=== PATIENT | female | born 1995 | race Caucasian/White ===

== ENCOUNTER 2016-11-18 21:52 | Emergency (ER) | payer OTHER ==
[~2016-11-18] VITALS: Ht 152.4 cm; Wt 79.4 kg
[~2016-11-18 21:52] MED LIST: MOTR200T44 PO; TYLE167L PO; TYLE325T5 PO; VITAPRTA PO
[2016-11-18 21:53] VITALS: BP 117/74
[2016-11-18] MEDS ORDERED: CYCLOBENZAPRINE 10 MG TAB PO ONE (23:00)
[2016-11-18] MEDS ORDERED: FLON1SPR (23:17)
[2016-11-18] MEDS ORDERED: CLOT10TR MT (23:17)
[2016-11-18] MEDS ORDERED: CYCL10TA PO (23:17)
[2017-01-05] MEDS ORDERED: KEFL500C17 PO (19:56)
== END 2016-11-18 23:38 | disposition home or self-care (01) ==
LOC: M ED 21:52
DX: M54.6 Pain in thoracic spine (principal); B37.0 Candidal stomatitis; J00 Acute nasopharyngitis [common cold]; F17.210 Nicotine dependence, cigarettes, uncomplicated

== ENCOUNTER 2017-08-08 05:54 | Emergency (ER) | payer OTHER ==
[2017-08-08 06:28] LABS: HEMATOCRIT 45.3 % (36.0-47.0); HEMOGLOBIN 15.7 g/dl (12.0-15.5); MEAN CORPUSCULAR HEMOGLOBIN 31.4 pg (27.0-33.0); MEAN CORPUSCULAR HGB CONC 34.7 g/dl (32.0-36.5); MEAN CORPUSCULAR VOLUME 90.6 fl (80.0-96.0); PLATELET COUNT, AUTOMATED 317 10^3/uL (150-450); RED CELL DISTRIBUTION WIDTH 12.4 % (11.5-14.5); WHITE BLOOD COUNT 14.9 10^3/uL (4.0-10.0)
[2017-08-08 06:48] LABS: AMPHETAMINES LEVEL URINE NEGATIVE (NEGATIVE); BARBITURATES URINE NEGATIVE (NEGATIVE); BENZODIAZEPINES URINE NEGATIVE (NEGATIVE); CANNABINOIDS URINE NEGATIVE (NEGATIVE); COCAINE METABOLITE URINE NEGATIVE (NEGATIVE); METHADONE URINE NEGATIVE (NEGATIVE); OPIATES URINE NEGATIVE (NEGATIVE); PHENCYCLIDINE URINE NEGATIVE (NEGATIVE)
[2017-08-08 06:59] LABS: ALBUMIN 4.1 GM/DL (3.2-5.2); ALBUMIN/GLOBULIN RATIO 1.14 (1.00-1.93); ALKALINE PHOSPHATASE 92 U/L (45-117); ALT/SGPT 15 U/L (12-78); ANION GAP 9 MEQ/L (8-16); AST/SGOT 13 U/L (7-37); BILIRUBIN,DIRECT < 0.1 MG/DL (0.0-0.2); BILIRUBIN,TOTAL 0.3 MG/DL (0.2-1.0); BLOOD UREA NITROGEN 16 MG/DL (7-18); CALCIUM LEVEL 8.8 MG/DL (8.5-10.1); CARBON DIOXIDE LEVEL 22 MEQ/L (21-32); CHLORIDE LEVEL 108 MEQ/L (98-107); CREATININE FOR GFR 0.77 MG/DL (0.55-1.30); ETHYL ALCOHOL (ETHANOL) 0.133 % (0.000-0.010); GLUCOSE, FASTING 88 MG/DL (70-100); POTASSIUM SERUM 3.8 MEQ/L (3.5-5.1); SALICYLATE LEVEL 2.8 MG/DL (5.0-30.0); SODIUM LEVEL 139 MEQ/L (136-145); TOTAL PROTEIN 7.7 GM/DL (6.4-8.2)
[2017-08-08 07:01] LABS: ACETAMINOPHEN LEVEL < 2.0 UG/ML (10.0-30.0)
[2017-08-08] MEDS ORDERED: LIDOCAINE 1% MDV 20ML VIAL As Ordered ×2 (07:33)
[2017-08-08] MEDS: LIDOCAINE 1% MDV 20ML VIAL SC ×2 (07:45)
[2017-08-08 08:08] LABS: CONTROL LINE HCG INT CTR LINE PRESENT; HCG, SERUM QUALITATIVE NEGATIVE (NEGATIVE)
[2017-08-08] MEDS: ADACEL/BOOSTRIX VACCINE (DIPHTH/PERTUSS/ACELL/TETANUS)0.5ML SYR (90715) IM ×2 (08:10)
== END 2017-08-08 12:26 | disposition home or self-care (01) ==
LOC: M ED 05:54
DX: F10.229 Alcohol dependence with intoxication, unspecified (principal); Y90.0 Blood alcohol level of less than 20 mg/100 ml; S61.215A Laceration without foreign body of left ring finger without damage to nail, initial encounter; S50.819A Abrasion of unspecified forearm, initial encounter; W26.8XXA Contact with other sharp object(s), not elsewhere classified, initial encounter; Y92.89 Other specified places as the place of occurrence of the external cause; F41.9 Anxiety disorder, unspecified; Z91.5 Personal history of self-harm
CPT/HCPCS: 90715

== ENCOUNTER 2017-09-29 14:53 | Emergency (ER) | payer OTHER ==
[2017-09-29 15:39] LABS: BASO # 0.1 10^3/uL (0.0-0.2); BASO % 0.3 % (0.0-1.0); EOS % 0.2 % (0.0-3.0); HEMATOCRIT 45.8 % (36.0-47.0); HEMOGLOBIN 15.4 g/dl (12.0-15.5); IMMATURE GRANULOCYTE % 0.8 % (0-3.0); LYMPH # 1.5 10^3/uL (1.5-6.5); LYMPH % 8.9 % (24.0-44.0); MEAN CORPUSCULAR HEMOGLOBIN 31.9 pg (27.0-33.0); MEAN CORPUSCULAR HGB CONC 33.6 g/dl (32.0-36.5); MEAN CORPUSCULAR VOLUME 94.8 fl (80.0-96.0); MONO # 1.2 10^3/uL (0.0-0.8); MONO % 6.9 % (0.0-5.0); NEUTROPHILS # 14.3 10^3/uL (1.8-7.7); NEUTROPHILS % 82.9 % (36.0-66.0); PLATELET COUNT, AUTOMATED 229 10^3/uL (150-450); RED BLOOD COUNT 4.83 10^6/uL (4.00-5.40); RED CELL DISTRIBUTION WIDTH 12.7 % (11.5-14.5); WHITE BLOOD COUNT 17.3 10^3/uL (4.0-10.0)
[2017-09-29 15:53] LABS: CONTROL LINE HCG INT CTR LINE PRESENT; HCG, SERUM QUALITATIVE NEGATIVE (NEGATIVE)
[2017-09-29 15:57] LABS: ANION GAP 8 MEQ/L (8-16); BLOOD UREA NITROGEN 16 MG/DL (7-18); CALCIUM LEVEL 9.2 MG/DL (8.5-10.1); CARBON DIOXIDE LEVEL 26 MEQ/L (21-32); CHLORIDE LEVEL 107 MEQ/L (98-107); CREATININE FOR GFR 1.09 MG/DL (0.55-1.30); GLOMERULAR FILTRATION RATE > 60.0 (>60); GLUCOSE, FASTING 104 MG/DL (70-100); SODIUM LEVEL 141 MEQ/L (136-145)
[2017-09-29 16:00] LABS: APPEARANCE, URINE CLOUDY (CLEAR); BACTERIA, URINE AUTO 1+ (NEGATIVE); BILIRUBIN, URINE AUTO NEGATIVE (NEGATIVE); BLOOD, URINE BLOOD 3+ (NEGATIVE); COLOR, URINE AMBER (YELLOW); GLUCOSE, URINE (UA) AUTO NEGATIVE (NEGATIVE); KETONE, URINE AUTO TRACE mg/dL (NEGATIVE); LEUKOCYTE ESTERASE, URINE AUTO 2+ (NEGATIVE); MUCUS, URINE MODERATE (NEGATIVE); NITRITE, URINE AUTO NEGATIVE (NEGATIVE); PROTEIN, URINE AUTO 2+ mg/dL (NEGATIVE); RBC, URINE AUTO TNTC /HPF (0-3); SPECIFIC GRAVITY URINE AUTO 1.019 (1.002-1.035); SQUAMOUS EPITHELIAL CELL UR AU 10 /HPF (0-6); WBC, URINE AUTO TNTC /HPF (0-3)
[2017-09-29] MEDS ORDERED: PERCOCET 5MG/325MG TAB PO (16:30)
[2017-09-29] MEDS: IBUPROFEN 800 MG TAB PO (16:41)
[2017-09-29] MEDS: PERCOCET 5MG/325MG TAB PO (16:41)
== END 2017-09-29 16:48 | disposition home or self-care (01) ==
LOC: M ED 14:53
DX: N39.0 Urinary tract infection, site not specified (principal); R09.89 Other specified symptoms and signs involving the circulatory and respiratory systems; R06.2 Wheezing; F17.200 Nicotine dependence, unspecified, uncomplicated
CPT/HCPCS: 84703

== ENCOUNTER 2017-10-24 03:49 | Emergency (ER) | payer OTHER | END 2017-10-24 05:05 | disposition home or self-care (01) | LOC: M ED 03:49 | DX: F10.129 Alcohol abuse with intoxication, unspecified (principal); J45.909 Unspecified asthma, uncomplicated; F17.200 Nicotine dependence, unspecified, uncomplicated | CPT/HCPCS: 99284 ==

== ENCOUNTER → 2018-08-06 | Outpatient (CLI) | payer OTHER, SELFPAY ==
[~2018-08-06] MED LIST changes: +BACT800T5 PO; +CLOT10TR MT; +CYCL10TA PO; +FLON1SPR; +IBUP80TA PO; +KEFL500C17 PO; +PERC5TAB12 PO; +PRED20TA PO
--- NOTE | 2018-08-06 18:22 | REP ---
Clinical: Anatomical evaluation. Comparison: None . Findings: Examination demonstrates a single live intrauterine in variable presentation. motion is identified by technologist. Placenta is noted posterior and grade zero without evidence for placenta previa or abruption. Amniotic fluid volume is normal. Cervix measures 4.1 cm in length and appears closed. No evidence for nuchal cord. Gestational age by current measurements 21 weeks 2 days with DUSTY 12/15/2018 . FHR equals 133 beats per minute. BPD 4.9 cm 20 weeks 6 days HC 18.3 cm 20 weeks 5 days AC 16.6 cm 21 weeks 4 days FL 3.6 cm 21 weeks 2 days HL 3.4 cm 21 weeks 5 days HC/AC ratio 1.1 see Estimated weight the 419 grams ( 50 percentile). Anatomical assessment demonstrates normal structures including cranium, choroid plexus, cavum, cerebellum/posterior fossa, facial features, lungs, four-chamber heart/ventricular outflow tracts, diaphragm, stomach, cord insertion/three-vessel cord, kidneys/bladder, spine, and extremities. Impression: Single live intrauterine in variable presentation demonstrating appropriate interval growth. 2. Anatomical assessment is complete and normal. No gross abnormalities are identified. Electronically Signed by Gonzalo Zhou MD 08/06/2018 06:13 P
== END ==
LOC: M RAD 14:39
PROVIDERS: ATTEND Advanced Practice Midwife
DX: Z34.82 Encounter for supervision of other normal pregnancy, second trimester (principal); Z36.89 Encounter for other specified antenatal screening; Z3A.21 21 weeks gestation of pregnancy

== ENCOUNTER 2018-11-10 21:14 | Inpatient (IN) | payer OTHER, SELFPAY ==
[~2018-11-10] VITALS: Ht 152.4 cm; Wt 77.0 kg
[2018-11-10] MEDS ORDERED: PENICILLIN G POTASSIUM IV 5 MU in D5W MINI-BAG PLUS 100 ML IV STA (22:03)
[2018-11-10] MEDS ORDERED: LR 1,000 ML IV SCH (22:03)
[2018-11-10] MEDS ORDERED: OXYTOCIN DRIP 30 UNITS in APPROPRIATE DILUENT 1 EA IV SCH (22:15)
[2018-11-10] MEDS ORDERED: BETAMETHASONE SOLUSPAN 6MG/ML INJ 5ML (J0702) IM SCH (22:15)
[2018-11-10 22:37] LABS: HEMATOCRIT 33.9 % (36.0-47.0); HEMOGLOBIN 11.8 g/dl (12.0-15.5); MEAN CORPUSCULAR HEMOGLOBIN 32.5 pg (27.0-33.0); MEAN CORPUSCULAR HGB CONC 34.8 g/dl (32.0-36.5); MEAN CORPUSCULAR VOLUME 93.4 fl (80.0-96.0); PLATELET COUNT, AUTOMATED 232 10^3/uL (150-450); RED BLOOD COUNT 3.63 10^6/uL (4.00-5.40); WHITE BLOOD COUNT 13.4 10^3/uL (4.0-10.0)
--- NOTE | 2018-11-10 23:33 | HPE ---
DATE OF ADMISSION: 11/10/2018 HISTORY OF THE PRESENT ILLNESS: The patient is a 23-year-old female who is a 3, para 3-0-1-3 at 35 weeks gestation with an estimated date of delivery (DUSTY) of 12/15/2018 based off of her second trimester ultrasound and consistent with last menstrual period (LMP). Patient initiated care in her second trimester at [facility]. Her has been complicated by only four visits, lack of compliance with care and labs. The patient presents to labor and delivery with complaints of spontaneous rupture of clear fluids at 5:00 p.m. today on 11/10/2018. She reports a gush followed by multiple trickles of fluid. She reports active movement. She denies vaginal bleeding and only reports occasional contractions. PAST MEDICAL HISTORY: Asthma. SURGICAL HISTORY: None. FAMILY HISTORY: Brother with seizures. Family members with thyroid issues. SOCIAL HISTORY: Patient is single. Father of the baby is involved. She is a smoker, smokes about half a pack of cigarettes per day. She reports a history of social use of alcohol prior to . She denies any history of alcohol abuse during . She declines any history of illicit drug use prior to or during . ALLERGIES: ZOLOFT. CURRENT MEDICATIONS: Ventolin PRIOR PREGNANCIES: In February 2014, the patient had a vaginal delivery at 39 weeks 3 days gestation of a living female weighing 5 pounds 7 ounces with no complications. January 2015, at 39 weeks 5 days gestation, she had a vaginal delivery of a living male weighing 6 pounds 12 ounces. February 2016, at 38 weeks and 3 days gestation, she had a vaginal delivery of a living male weighing 6 pounds 14 ounces. In December 2017, she had an induced . LABS: None done. heart rate: 130 beats per minute, moderate variability, positive accelerations, no decelerations. Contractions: Occasionally. Sterile speculum exam (SSE): Scant amount of fluid noted in the vaginal canal. Fluid had a positive Nitrazine test and a positive fern. Sterile vaginal exam (SVE): 2 cm dilated, 75% effaced, -2 station, anterior with no show. Bedside ultrasound shows about 9.75 cm of fluid and baby with a cephalic presentation. PHYSICAL EXAMINATION: General: Alert and oriented (A and O) times three. Respiratory: Regular rate with no use of accessory muscles. Abdomen: Gravid and nontender to touch. Lower Extremities: No edema. No clonus. ASSESSMENT: Intrauterine at 35 weeks gestation, premature rupture of membranes, Group B Streptococcus (GBS) unknown, category one heart rate tracing. PLAN: Admit patient to labor and delivery. Saline lock and labs per unit protocol, clear liquid diet, out of bed ad yudy. All labs to be drawn. GBS antibiotic prophylaxis to be started. GBS was obtained. Betamethasone intramuscular (IM) injections to be given now and again in 24 hours if the patient is still . IV Pitocin ordered if the patient does not spontaneously go into labor within 4 hours after receiving her first dose of antibiotics. Neonatology has been notified of possible delivery. All risks associated with delivery including a intensive care unit (NICU) stay and respiratory issues were discussed with patient and family members. Anticipate delivery.
[2018-11-10 23:58] LABS: HIV 1&2 SCREEN CENTAUR NEGATIVE (NEGATIVE)
[2018-11-11] VITALS (35 sets, daily range): BP systolic 112–173; BP diastolic 56–93
[2018-11-11 01:38] LABS: AMPHETAMINES URINE REFLEX NEGATIVE (NEGATIVE); BARBITURATES URINE REFLEX NEGATIVE (NEGATIVE); BENZODIAZEPINES URINE REFLEX NEGATIVE (NEGATIVE); CANNABINOIDS URINE REFLEX NEGATIVE (NEGATIVE); COCAINE METABOLITE URINE REFLE NEGATIVE (NEGATIVE); METHADONE URINE REFLEX NEGATIVE (NEGATIVE); OPIATES URINE REFLEX NEGATIVE (NEGATIVE); PHENCYCLIDINE URINE REFLEX NEGATIVE (NEGATIVE)
[2018-11-11 02:35] LABS: CHLAMYDIA DNA AMPLIFICATION NEGATIVE (NEGATIVE); GC DNA AMPLIFICATION NEGATIVE (NEGATIVE)
[2018-11-11] MEDS: PENICILLIN G POTASSIUM IV 2.5 MU in APPROPRIATE DILUENT 1 EA IV SCH ×5 (03:27→21:14)
[2018-11-11] MEDS: miSOPROStol 50 MCG 1/2 TAB (S0191) SL SCH ×2 (08:17→12:19)
[2018-11-11 09:13] LABS: RUBELLA IgG QUALITATIVE IMMUNE (IMMUNE)
[2018-11-11] MEDS: CALCIUM CARBONATE 500 MG CHEW U/D PO PRN ×2 (11:19→17:35)
[2018-11-11] MEDS ORDERED: FENTANYL 2MCG/ML ROPIVACAINE 0.2% IN 0.9% NACL 100ML IVBAG As Ordered ONE (15:53)
[2018-11-11] MEDS ORDERED: OXYTOCIN DRIP 30 UNITS in APPROPRIATE DILUENT 1 EA IV SCH (17:15)
[2018-11-11] MEDS ORDERED: LACTATED RINGER'S 1000 ML IV PRN (17:30)
[2018-11-11] MEDS ORDERED: ePHEDrine SULFATE 25 MG/5 ML(5MG/ML) SYRINGE IV PRN (17:30)
[2018-11-11] MEDS ORDERED: REFRIGERATOR IV KEYS XX PRN (17:30)
[2018-11-11] MEDS ORDERED: EPIDURAL COMMENT XX SCH (17:30)
[2018-11-11] MEDS ORDERED: NALOXONE INJ 0.4 MG/1 ML VIAL (J2310) IV PRN (17:30)
[2018-11-11] MEDS ORDERED: ONDANSETRON 4MG/2ML VIAL (J2405) IV PRN ×2 (17:30→22:30)
[2018-11-11] MEDS ORDERED: diphenhydrAMINE INJ 50MG/ML VIAL (J1200) IV PRN (17:30)
[2018-11-11] MEDS ORDERED: EPIDURAL/PCA KEYS XX PRN (17:30)
[2018-11-11] MEDS ORDERED: FENTANYL/ROPIVACAINE/NACL BAG 100 ML EPIDURAL SCH (17:30)
--- NOTE | 2018-11-11 22:27 | DN ---
DATE: 11/11/2018 PREDELIVERY DIAGNOSIS: 35 weeks, premature rupture of membranes. POSTDELIVERY DIAGNOSIS: Delivered. PROCEDURE: Spontaneous vaginal delivery. SPECIAL EFFECTS ARTIST: Tonio Piper MD ANESTHESIA: Epidural. ESTIMATED BLOOD LOSS: 300 mL. FINDINGS: 5 pound 0 ounce female. scores 8 and 9. DELIVERY SUMMARY: After a short second stage, the patient had spontaneous delivery of a 5 pound 0 ounce female , scores 8 and 9, under epidural anesthesia. There was no nuchal cord. The shoulders delivered with ease. The baby was handed to the mother and cried immediately. The cord was doubly clamped and cut. Placenta delivered spontaneously and appeared to be intact. The patient received IV Pitocin immediately after delivery of the placenta. There were no vaginal lacerations present. Sponge counts were correct.
[2018-11-11] MEDS ORDERED: DOCUSATE SODIUM 100 MG CAP PO PRN (22:30)
[2018-11-11] MEDS ORDERED: IBUPROFEN 600 MG TAB PO PRN (22:30)
[2018-11-11] MEDS ORDERED: METHYLERGONOVINE MALEATE 0.2 MG TAB PO PRN (22:30)
[2018-11-11] MEDS ORDERED: OXYTOCIN DRIP 30 UNITS in APPROPRIATE DILUENT 1 EA IV ONE (22:30)
[2018-11-11] MEDS ORDERED: IBUPROFEN 800 MG TAB PO PRN (22:30)
[2018-11-11] MEDS ORDERED: ACETAMINOPHEN 500 MG TAB PO PRN (22:30)
[2018-11-11] MEDS ORDERED: RHOGAM 300 MCG (1500 IU) INJ (J2790) IM SCH (22:30)
[2018-11-11] MEDS ORDERED: ACETAMINOPHEN TAB 650MG DOSE (2X325MG) PO PRN (22:30)
[2018-11-11] MEDS ORDERED: MEASLES,MUMPS,RUBELLA VACCINE INJ (MMR-II) (90707) SC SCH (22:30)
[2018-11-11] MEDS ORDERED: DIBUCAINE 1% OINTMENT 30GM TOP PRN (22:30)
[2018-11-12 06:06] VITALS: BP 115/56
--- NOTE | 2018-11-12 06:14 | IPNPDOC ---
Text Note Date of Service The patient was seen on 11/12/18. NOTE Postop Day 1 s/p ; uncomplicated S: pain adequately controlled, lochia and bleeding decreasing, voiding spontaneously, ambulating without assistance, tolerating regular diet. Formula/breast feeding. O: vitals stable Heart: RRR, no murmurs Lungs: CTA bilaterally Abd: Fundus firm @ U Ext: no edema, nontender, negative Anshu's bilaterally A/P: 23 yo G5 now P4. day 1 s/p . Hemodynamically stable, afebrile, adequate pain control. Recovering well. -Routine postoperative care and advancement. -Anticipate discharge tomorrow VS,Fishbone, I+O VS, Fishbone, I+O Vital Signs Date Time Temp Pulse Resp B/P (MAP) Pulse Ox O2 Delivery O2 Flow Rate FiO2 11/12/18 06:06 99.1 78 16 115/56 (75) I&O- Last 24 Hours up to 6 AM 11/12/18 06:00 Intake Total 4058.0 ml Output Total 1200 ml Balance 2858.0 ml GME ATTESTATION GME ATTESTATION My faculty preceptor for this patient encounter was physically present during the encounter and was fully available. All aspects of the patient interview, examination, medical decision making process, and medical care plan development were reviewed and approved by the faculty preceptor. The faculty preceptor is aware and concurs with the plan as stated in the body of this note and will attest to such by his/her cosignature. YUKI VELASQUEZ DO Nov 12, 2018 06:13
[2018-11-12] MEDS ORDERED: PRENATAL VITAMINS CHEWABLE TABLET PO SCH (09:00)
== END 2018-11-12 14:30 | disposition home or self-care (01) | DRG 560 ==
LOC: M LDO 21:14 → M LDI 22:04 → M OBS 11-11 23:38
PROVIDERS: ADMIT Advanced Practice Midwife; ATTEND Specialist
PROC: 10E0XZZ Delivery of Products of Conception, External Approach (ICD-10-PCS; principal; 2018-11-11)
DX: O42.013 Preterm premature rupture of membranes, onset of labor within 24 hours of rupture, third trimester (principal); Z3A.35 35 weeks gestation of pregnancy; O99.334 Smoking (tobacco) complicating childbirth; F17.210 Nicotine dependence, cigarettes, uncomplicated; Z37.0 Single live birth

== ENCOUNTER → 2019-06-01 | Outpatient (REF) | payer OTHER | LOC: M PLALAB 15:31 | PROVIDERS: ATTEND Advanced Practice Midwife | DX: Z34.92 Encounter for supervision of normal pregnancy, unspecified, second trimester (principal) ==

== ENCOUNTER → 2019-06-15 | Outpatient (CLI) | payer OTHER ==
[~2019-06-15] MED LIST changes: +CYCL-707 PO; -CYCL10TA PO
--- NOTE | 2019-06-16 04:04 | REP ---
Clinical: Anatomical evaluation. Comparison: None . Findings: Examination demonstrates a single live intrauterine in variable presentation. motion is identified by technologist. Placenta is noted posterior/fundal and grade I without evidence for placenta previa or abruption. Amniotic fluid volume is normal. Cervix measures 3.7 cm in length and appears closed. No evidence for nuchal cord. Gestational age by current measurements 21 weeks 2 days with DUSTY 10/24/2019 . FHR equals 152 beats per minute. BPD 5.1cm 21 weeks 3 days HC 19.0 cm 21 weeks 2 days AC 17.0 cm 22 weeks 0 days FL 3.7 cm 21 weeks 5 days HL 3.0 cm 22 weeks 6 days HC/AC ratio 1.12 Estimated weight 453 grams ( 62nd percentile). Anatomical assessment demonstrates normal structures including cranium, choroid plexus, cavum, cerebellum/posterior fossa, facial features, lungs, four-chamber heart/ventricular outflow tracts, diaphragm, stomach, cord insertion/three-vessel cord, kidneys/bladder, spine, and extremities. Impression: Single live intrauterine in variable presentation demonstrating appropriate estimated weight to age. Anatomical assessment is complete and normal.
== END ==
LOC: M WHC 13:45
PROVIDERS: ATTEND Advanced Practice Midwife
DX: Z3A.00 Weeks of gestation of pregnancy not specified (principal)

== ENCOUNTER 2020-02-08 10:15 | Emergency (ER) | payer OTHER ==
[~2020-02-08] VITALS: Ht 152.4 cm; Wt 82.5 kg
[2020-02-08] MEDS ORDERED: BUPR15TA PO (10:25)
[2020-02-08] MEDS ORDERED: NORC1TAB7 PO (10:53)
[2020-02-08] MEDS ORDERED: AUGM875T28 PO (10:53)
[2020-02-08 11:10] VITALS: BP 135/78
== END 2020-02-08 11:13 | disposition home or self-care (01) ==
LOC: M ED 10:15
DX: K04.7 Periapical abscess without sinus (principal); K02.9 Dental caries, unspecified; F41.9 Anxiety disorder, unspecified; F32.9 Major depressive disorder, single episode, unspecified; F17.200 Nicotine dependence, unspecified, uncomplicated; Z88.8 Allergy status to other drugs, medicaments and biological substances; Z79.899 Other long term (current) drug therapy

== ENCOUNTER 2020-11-23 03:05 | Emergency (ER) | payer OTHER ==
[~2020-11-23] VITALS: Ht 152.4 cm; Wt 77.3 kg
[~2020-11-23 03:05] MED LIST changes: +AUGM875T28 PO; +BUPR15TA PO; +NORC1TAB7 PO
[2020-11-23] MEDS ORDERED: KETOROLAC 30 MG/ML 1ML VIAL IV ONE (03:50)
[2020-11-23] MEDS ORDERED: NS 1,000 ML IV ONE (03:50)
[2020-11-23] MEDS ORDERED: METOCLOPRAMIDE INJ 10MG/2ML VIAL (J2765 PER 1) IV ONE (03:50)
[2020-11-23] MEDS ORDERED: diphenhydrAMINE 50MG/ML VIAL (J1200) IV ONE (03:50)
[2020-11-23 05:30] VITALS: BP 115/61
== END 2020-11-23 05:47 | disposition home or self-care (01) ==
LOC: M ED 03:05
DX: G43.909 Migraine, unspecified, not intractable, without status migrainosus (principal); F17.200 Nicotine dependence, unspecified, uncomplicated; Z88.8 Allergy status to other drugs, medicaments and biological substances
CPT/HCPCS: 96361; 96374; 96375; 99284; J1200; J1885; J2765

== ENCOUNTER → 2021-01-12 | Outpatient (CLI) | payer MEDICAID | LOC: M OUTALCOH 07:46 | PROVIDERS: ATTEND Psychiatry & Neurology Psychiatry | DX: Z13.39 Encounter for screening examination for other mental health and behavioral disorders (principal) ==

== ENCOUNTER 2021-07-04 17:11 | Emergency (ER) | payer MEDICAID, OTHER ==
[~2021-07-04] VITALS: Ht 152.4 cm; Wt 95.8 kg
[2021-07-04 18:14] LABS: BASO # 0.1 10^3/uL (0.0-0.2); BASO % 0.3 % (0.0-1.0); EOS % 0.1 % (0.0-3.0); HEMATOCRIT 44.7 % (36.0-47.0); HEMOGLOBIN 15.2 g/dl (12.0-15.5); LYMPH # 1.1 10^3/uL (1.5-5.0); LYMPH % 6.1 % (24.0-44.0); MEAN CORPUSCULAR HEMOGLOBIN 32.5 pg (27.0-33.0); MEAN CORPUSCULAR VOLUME 95.5 fl (80.0-96.0); MONO % 12.7 % (2.0-8.0); NEUTROPHILS # 14.7 10^3/uL (1.5-8.5); PLATELET COUNT, AUTOMATED 258 10^3/uL (150-450); RED BLOOD COUNT 4.68 10^6/uL (4.00-5.40); WHITE BLOOD COUNT 18.4 10^3/uL (4.0-10.0)
[2021-07-04] MEDS ORDERED: KETOROLAC 30 MG/ML 1ML VIAL IV ONE (18:40)
[2021-07-04] MEDS ORDERED: NS 1,000 ML IV ONE (18:40)
[2021-07-04] MEDS ORDERED: ONDANSETRON 4MG/2ML VIAL IV ONE (18:40)
[2021-07-04 18:42] LABS: ALBUMIN 3.9 GM/DL (3.2-5.2); BILIRUBIN,DIRECT 0.2 MG/DL (0.0-0.2); BILIRUBIN,TOTAL 0.6 MG/DL (0.2-1.0); TOTAL PROTEIN 7.8 GM/DL (6.4-8.2)
[2021-07-04 18:47] LABS: MONO # 2.3 10^3/uL (0.0-0.8)
[2021-07-04] MEDS ORDERED: cefTRIAXone SOD 1 GM in D5W MINI-BAG PLUS 50 ML IV ONE (19:40)
[2021-07-04 20:20] VITALS: BP 129/85
[2021-07-04] MEDS ORDERED: CIPR-249 PO (20:24)
== END 2021-07-04 20:42 | disposition home or self-care (01) ==
LOC: M ED 17:11
DX: N10 Acute pyelonephritis (principal); R11.2 Nausea with vomiting, unspecified; R05.9 Cough, unspecified; K76.0 Fatty (change of) liver, not elsewhere classified; Z87.442 Personal history of urinary calculi; F17.200 Nicotine dependence, unspecified, uncomplicated
CPT/HCPCS: 71046; 74176; 80047; 80076; 81001; 82150; 83605; 83690; 84702; 85025; 87040; 87086; 96361; 96365; 96375; 99284; J0696; J1885; J2405

== ENCOUNTER 2022-04-07 10:35 | Emergency (ER) | payer OTHER ==
[~2022-04-07] VITALS: Ht 154.9 cm; Wt 98.3 kg
[~2022-04-07 10:35] MED LIST changes: +CIPR-249 PO
[2022-04-07] MEDS ORDERED: GABA-282 PO (12:05)
[2022-04-07 12:16] VITALS: BP 132/71
== END 2022-04-07 12:17 | disposition home or self-care (01) ==
LOC: M ED 10:35
DX: R20.2 Paresthesia of skin (principal); M79.602 Pain in left arm; R11.2 Nausea with vomiting, unspecified; F17.200 Nicotine dependence, unspecified, uncomplicated; Z87.442 Personal history of urinary calculi; R51.9 Headache, unspecified; L40.9 Psoriasis, unspecified; Z88.8 Allergy status to other drugs, medicaments and biological substances; Z79.899 Other long term (current) drug therapy

== ENCOUNTER → 2022-07-13 | Outpatient (CLI) | payer OTHER ==
[~2022-07-13] MED LIST changes: +GABA-282 PO
== END ==
LOC: M RAD 12:20
PROVIDERS: ATTEND Physician Assistant
DX: M25.572 Pain in left ankle and joints of left foot (principal)

== ENCOUNTER → 2022-12-25 | Outpatient (REF) | payer OTHER | LOC: M SFHCWAGY 17:54 | PROVIDERS: ATTEND Obstetrics & Gynecology | DX: Z12.4 Encounter for screening for malignant neoplasm of cervix (principal) ==

== ENCOUNTER 2023-10-02 22:52 | Emergency (ER) | payer OTHER ==
[~2023-10-02] VITALS: Ht 152.4 cm; Wt 68.2 kg
[2023-10-02 23:06] VITALS: TEMP 98.7
[2023-10-02 23:24] LABS: BASO # 0.1 10^3/uL (0.0-0.2); BASO % 0.5 % (0.0-1.0); EOS # 0.2 10^3/uL (0.0-0.5); EOS % 1.2 % (0.0-3.0); HEMATOCRIT 44.9 % (36.0-47.0); HEMOGLOBIN 15.7 g/dl (12.0-15.5); LYMPH # 3.3 10^3/uL (1.5-5.0); LYMPH % 23.9 % (24.0-44.0); MEAN CORPUSCULAR HEMOGLOBIN 32.6 pg (27.0-33.0); MEAN CORPUSCULAR VOLUME 93.2 fl (80.0-96.0); MONO % 7.6 % (2.0-8.0); PLATELET COUNT, AUTOMATED 324 10^3/uL (150-450); RED BLOOD COUNT 4.82 10^6/uL (4.00-5.40); WHITE BLOOD COUNT 13.7 10^3/uL (4.0-10.0)
[2023-10-02] MEDS: diphenhydrAMINE 50MG/ML VIAL IV ONE (23:38)
[2023-10-02] MEDS: NS 1,000 ML IV ONE (23:38)
[2023-10-02] MEDS: METOCLOPRAMIDE INJ 10MG/2ML VIAL IV ONE (23:38)
[2023-10-02] MEDS: KETOROLAC 30 MG/ML 1ML VIAL IV ONE (23:38)
[2023-10-02 23:52] LABS: ALBUMIN 4.1 G/DL (3.2-5.2); ALKALINE PHOSPHATASE 96 U/L (46-116); ALT/SGPT 13 U/L (7.0-40); AST/SGOT 8 U/L (<34); BILIRUBIN,TOTAL 0.4 MG/DL (0.3-1.2); BLOOD UREA NITROGEN 15 MG/DL (9-23); CALCIUM LEVEL 9.6 MG/DL (8.5-10.1); CARBON DIOXIDE LEVEL 23 MMOL/L (20-31); CHLORIDE LEVEL 107 MMOL/L (98-107); CREATININE FOR GFR 0.89 MG/DL (0.55-1.30); GLOMERULAR FILTRATION RATE > 60.0 (>60); GLUCOSE, FASTING 106 MG/DL (60-100); POTASSIUM SERUM 3.5 MMOL/L (3.5-5.1); SODIUM LEVEL 138 MMOL/L (136-145); TOTAL PROTEIN 7.2 G/DL (5.7-8.2)
[2023-10-03 00:42] LABS: APPEARANCE, URINE CLEAR (CLEAR); BACTERIA, URINE AUTO NEGATIVE (NEGATIVE); BILIRUBIN, URINE AUTO NEGATIVE (NEGATIVE); BLOOD, URINE BLOOD NEGATIVE (NEGATIVE); COLOR, URINE STRAW (YELLOW); GLUCOSE, URINE (UA) AUTO NEGATIVE (NEGATIVE); KETONE, URINE AUTO NEGATIVE (NEGATIVE); LEUKOCYTE ESTERASE, URINE AUTO NEGATIVE (NEGATIVE); MUCUS, URINE SMALL (NEGATIVE); NITRITE, URINE AUTO NEGATIVE (NEGATIVE); PROTEIN, URINE AUTO NEGATIVE (NEGATIVE); RBC, URINE AUTO 0 /HPF (0-3); SPECIFIC GRAVITY URINE AUTO 1.003 (1.002-1.035); SQUAMOUS EPITHELIAL CELL UR AU 1 /HPF (0-6); UROBILINOGEN, URINE AUTO 0.2 mg/dL (0.0-2.0); WBC, URINE AUTO 0 /HPF (0-3)
[2023-10-03 01:15] VITALS: BP 130/79; O2SAT 99
== END 2023-10-03 01:23 | disposition home or self-care (01) ==
LOC: M ED 22:52
DX: R51.9 Headache, unspecified (principal); R94.31 Abnormal electrocardiogram [ECG] [EKG]; J45.909 Unspecified asthma, uncomplicated; F41.9 Anxiety disorder, unspecified; F32.A Depression, unspecified; F17.210 Nicotine dependence, cigarettes, uncomplicated; F12.10 Cannabis abuse, uncomplicated; Z88.8 Allergy status to other drugs, medicaments and biological substances; Z79.2 Long term (current) use of antibiotics
CPT/HCPCS: 70450; 80053; 81001; 85025; 93005; 96374; 99284; J1200; J1885; J2765

== ENCOUNTER 2023-12-21 18:41 | Emergency (ER) | payer OTHER ==
[~2023-12-21] VITALS: Ht 152.4 cm; Wt 72.7 kg
[~2023-12-21 18:41] MED LIST changes: +GABA-1172 PO; -GABA-282 PO
[2023-12-21 20:46] VITALS: BP 153/90; TEMP 97.2; O2SAT 98
== END 2023-12-21 20:48 | disposition home or self-care (01) ==
LOC: M ED 18:41
DX: S92.152A Displaced avulsion fracture (chip fracture) of left talus, initial encounter for closed fracture (principal); Y92.410 Unspecified street and highway as the place of occurrence of the external cause; Y93.9 Activity, unspecified; Y99.9 Unspecified external cause status; V00.848A Other accident with standing micro-mobility pedestrian conveyance, initial encounter; J45.909 Unspecified asthma, uncomplicated; F17.210 Nicotine dependence, cigarettes, uncomplicated; Z88.8 Allergy status to other drugs, medicaments and biological substances